=== PATIENT | male | born 1965 | race Caucasian/White ===

== ENCOUNTER 2017-04-02 14:36 | Emergency (ER) | payer BC ==
--- NOTE | 2017-04-02 15:07 | Emergency Department Record ---
History of Present Illness - General Chief Complaint: Back Pain/Injury Stated Complaint: BACK PAIN Time Seen by Provider: 04/02/17 15:01 - History of Present Illness Initial Comments: The patient states he fell off a ladder 4 weeks ago and did not seek medical attention a that time. He had a rhizotomy prior to that the previous August, so has been a patient of Dr[facility]. Today he had xrays ordered by Dr. Collins, and he is here because he needs to know if his back is broken. No doctor saw him, but he also wants to know if he can get his MRI. He states he has not re injured his back. The pain goes into his pelvis and left hip but not down his legs. MD Complaint: Back pain -: Week(s) - Related Data Previous Rx's Medication Instructions Recorded Cyclobenzaprine HCl [Flexeril] 10 mg PO TID #14 tablet 04/02/17 Allergies Allergy/AdvReac Type Severity Reaction Status Date / Time No Known Allergies Allergy Unverified 12/23/16 19:08 Review of Systems Reviewed: No additional complaints except as noted below Constitutional: Reports: As per HPI. Denies: Chills, Fever, Malaise, Night sweats, Weakness, Weight change Eyes: Reports: As per HPI. Denies: Eye discharge, Eye pain, Photophobia, Vision change ENT: Reports: As per HPI. Denies: Congestion, Dental pain, Ear pain, Epistaxis , Hearing loss, Throat pain Respiratory: Reports: As per HPI. Denies: Cough, Dyspnea, Hemoptysis, Stridor, Wheezes Cardiovascular: Reports: As per HPI. Denies: Arrhythmia, Chest pain, Dyspnea on exertion, Edema, Murmurs, Orthopnea, Palpitations, Paroxysmal nocturnal dyspnea, Rheumatic Fever, Syncope Endocrine: Reports: As per HPI. Denies: Fatigue, Heat or cold intolerance, Polydipsia, Polyuria Gastrointestinal: Reports: As per HPI. Denies: Abdominal pain, Constipation, Diarrhea, Hematemesis, Hematochezia, Melena, Nausea, Vomiting Genitourinary: Reports: As per HPI. Denies: Dysuria, Frequency, Hematuria, Incontinence, Retention, Testicular pain, Testicular mass, Urgency Musculoskeletal: Reports: As per HPI. Denies: Arthralgia, Back pain, Gout, Joint swelling, Myalgia, Neck pain Skin: Reports: As per HPI. Denies: Bruising, Change in color, Change in hair/ nails, Lesions, Pruritus, Rash Neurological: Reports: As per HPI. Denies: Abnormal gait, Confusion, Headache, Numbness, Paresthesias, Seizure, Tingling, Tremors, Vertigo, Weakness Psychiatric: Reports: As per HPI. Denies: Anxiety, Auditory hallucinations, Depression, Homicidal thoughts, Suicidal thoughts, Visual hallucinations Hematological/Lymphatic: Reports: As per HPI. Denies: Anemia, Blood Clots, Easy bleeding, Easy bruising, Swollen glands Physical Exam - General General Appearance: Alert, Oriented x3, Cooperative, No acute distress (able to bend over to touch his boots on his feet while sitting on the cart.) - Head Head exam: Normal inspection - Eye Eye exam: Normal appearance, PERRL Pupils: Normal accommodation, Miosis (bilateral pinpoint pupils) - ENT ENT exam: Normal exam, Mucous membranes moist, Normal external ear exam, Normal orophraynx, TM's normal bilaterally Ear exam: Normal external inspection. negative: External canal tenderness Nasal Exam: Normal inspection. negative: Discharge, Sinus tenderness Mouth exam: Normal external inspection, Tongue normal Teeth exam: Normal inspection. negative: Dental caries Throat exam: Normal inspection. negative: Tonsillar erythema, Tonsillar exudate - Neck Neck exam: Normal inspection, Full ROM. negative: Tenderness - Respiratory Respiratory exam: Normal lung sounds bilaterally. negative: Respiratory distress - Cardiovascular Cardiovascular Exam: Regular rate, Normal rhythm, Normal heart sounds - GI/Abdominal GI/Abdominal exam: Soft, Normal bowel sounds. negative: Tenderness - Rectal Rectal exam: Deferred - exam: Deferred - Extremities Extremities exam: Normal inspection, Full ROM, Normal capillary refill. negative: Tenderness - Back Back exam: Reports: Normal inspection, Full ROM, Other (minimal soreness to lower lumbar and sacral regions diffusely.). Denies: CVA tenderness (R), CVA tenderness (L), Muscle spasm, Rash noted, Tenderness - Neurological Neurological exam: Alert, CN II-XII intact, Normal gait, Oriented X3, Reflexes normal (2 plus and equal bilaterally). negative: Motor sensory deficit - Psychiatric Psychiatric exam: Normal affect, Normal mood - Skin Skin exam: Dry, Intact, Normal color, Warm Medical Decision Making - Management Options MDM Management: No Additional Work-up Planned (Follow up with your Back Specialist as previously arranged.) - Data Complexity MDM Data: X-Ray Ordered and/or Reviewed Disposition Disposition: Discharge Clinical Impression: Chronic low back pain Qualifiers: Back pain laterality: bilateral Sciatica presence: without sciatica Qualified Code(s): M54.5 - Low back pain; G89.29 - Other chronic pain; G89.29 - Other chronic pain Disposition: Home, Self-Care Condition: (1) Good Instructions: Low Back Strain (ED) Additional Instructions: Follow up with Dr. Collins as previously arranged. Flexeril as directed if needed for pain. No lifting bending twisting. Prescriptions: Cyclobenzaprine HCl [Flexeril] 10 mg PO TID #14 tablet Quality - Quality Measures Quality Measures: N/A - Blood Pressure Screening Does Patient Have Any of the Following: No Systolic Measurement: ~ Screening for High Blood Pressure: < Normal BP, F/U Not Required > [G8786]
[2017-04-02] MEDS ORDERED: KETOROLAC 30 MG/ML VIAL IM ONE (15:23)
[2017-04-02] MEDS ORDERED: ORPHENADRINE CITRATE 60MG/2ML VIAL IM ONE (15:23)
== END 2017-04-02 15:53 | disposition home or self-care (01) ==
LOC: ER 14:36
DX: G89.21 Chronic pain due to trauma (principal); M54.5 Low back pain; M25.552 Pain in left hip; W11.XXXA Fall on and from ladder, initial encounter
CPT/HCPCS: 96372; 99283; 99284; J1885; J2360

== ENCOUNTER 2018-06-28 19:47 | Observation (INO) | payer BC ==
--- NOTE | 2018-06-28 19:59 | Emergency Department Record ---
History of Present Illness - General Chief Complaint: Chest Pain Stated Complaint: CHEST PRESSURE/ACHE Time Seen by Provider: 06/28/18 19:48 Source: Patient Mode of Arrival: Ambulatory Limitations: No limitations - History of Present Illness Initial Comments: 52 yo male presents to ED for evaluation of an "ache" to the left chest, reports symptoms are intermittent for the past several days. Patient denies fevers, chills, or pain with deep inspiration. Patient reports a history of smoking and HTN, denies previous heart problems. Patient denies history of DVT , calf swelling or pain. Patient is worried that he may have "cancer of the toe , or just neuropathy", also was recently seen for blood in the stool by his PCP. MD Complaint: Chest pain Onset/Timin -: Days(s) Onset: Other Pain Location: Left chest Pain Radiation: None Severity: Moderate Quality: Aching Consistency: Intermittent Improves With: Nothing Worsens With: Nothing - Related Data Home Medications Medication Instructions Recorded Confirmed Last Taken Atenolol/Chlorthalidone 1 each PO DAILY 06/28/18 06/28/18 Unknown [Atenolol-Chlorthalidone 100-25] Allergies Allergy/AdvReac Type Severity Reaction Status Date / Time No Known Drug Allergies Allergy Verified 06/28/18 19:49 Review of Systems Constitutional: Denies: Chills, Fever, Malaise, Night sweats Eyes: Denies: Eye discharge, Eye pain ENT: Denies: Congestion, Ear pain, Epistaxis Respiratory: Denies: Cough, Dyspnea Cardiovascular: Reports: Chest pain. Denies: Dyspnea on exertion Endocrine: Denies: Fatigue, Heat or cold intolerance Gastrointestinal: Denies: Abdominal pain, Nausea, Vomiting Genitourinary: Denies: Incontinence, Retention Musculoskeletal: Denies: Arthralgia, Back pain, Gout, Joint swelling Skin: Denies: Bruising, Change in color Neurological: Denies: Abnormal gait, Confusion, Headache, Seizure Psychiatric: Reports: Anxiety Hematological/Lymphatic: Denies: Anemia, Blood Clots Past Medical History - SOCIAL HISTORY Smoking Status: Current every day smoker Drug Use: Heavy Drug Use Detail:: Marijuana - RESPIRATORY Hx Respiratory Disorders: No - CARDIOVASCULAR Hx Hypertension: Yes - NEURO Hx Neuropathy: Yes - GI Hx GI Disorders: No - Hx Genitourinary Disorders: No - ENDOCRINE Hx Endocrine Disorders: No - MUSCULOSKELETAL Hx Back Injury: Yes - PSYCH Hx Psych Problems: No - HEMATOLOGY/ONCOLOGY Hx Hematology/Oncology Disorders: No Physical Exam - General General Appearance: Alert, Oriented x3, Cooperative, Anxious Limitations: No limitations - Head Head exam: Atraumatic, Normocephalic, Normal inspection Head exam detail: negative: Abrasion, Contusion, Singletary's sign, General tenderness, Hematoma, Laceration - Eye Eye exam: Normal appearance. negative: Conjunctival injection, Periorbital swelling, Periorbital tenderness, Scleral icterus - ENT Ear exam: negative: Auricular hematoma, Auricular trauma Nasal Exam: negative: Active bleeding, Discharge, Dried blood, Foreign body Mouth exam: negative: Drooling, Laceration, Muffled voice, Tongue elevation - Neck Neck exam: Normal inspection. negative: Meningismus, Tenderness - Respiratory Respiratory exam: Normal lung sounds bilaterally. negative: Rales, Respiratory distress, Rhonchi, Stridor - Cardiovascular Cardiovascular Exam: Regular rate, Normal rhythm, Normal heart sounds - GI/Abdominal GI/Abdominal exam: Soft. negative: Rebound, Rigid, Tenderness - Rectal Rectal exam: Deferred - exam: Deferred - Extremities Extremities exam: Other (Clubbing of the digits). negative: Calf tenderness, Pedal edema, Tenderness - Back Back exam: Denies: CVA tenderness (R), CVA tenderness (L) - Neurological Neurological exam: Alert, Normal gait, Oriented X3 - Psychiatric Psychiatric exam: Anxious - Skin Skin exam: Normal color. negative: Abrasion Type of lesion: negative: abrasion Course - Reevaluation(s) Reevaluation #1: 06/28/18 19:59 EKG: NSR 72 Normal axis, normal intervals No acute ST-T wave changes Reevaluation #2: 06/28/18 20:39 Laboratory studies were reviewed and are grossly unremarkable for an acute process. CXR: No acute process Patient was updated on all results, HEART Protocol was reviewed, patient scores 4. Will admit for further cardiac evaluation. Reevaluation #3: 06/28/18 20:48 Case was discussed with Jenise Stock NP, will accept admission at this time. Medical Decision Making - Lab Data Result diagrams: 06/28/18 20:07 06/28/18 20:07 Disposition Disposition: Admit Clinical Impression: Anxiety Chest pain Qualifiers: Chest pain type: unspecified Qualified Code(s): R07.9 - Chest pain, unspecified Disposition: Still a Patient at [facility] Decision to Admit: Admit from ER Decision to Admit Date: 06/28/18 Decision to Admit Time: 20:41 Condition: (2) Stable Forms: Patient Portal Access Time of Disposition: 20:41 Quality - Quality Measures Quality Measures: N/A - Blood Pressure Screening Does Patient Have Any of the Following: Active Dx of HTN Blood Pressure Classification: Hypertensive Reading Systolic Measurement: 143 Diastolic Measurement: 93 Screening for High Blood Pressure: Patient Exclusion, Hx of HTN [[id number]]
[2018-06-28] MEDS ORDERED: ASPIRIN 81 MG CHEWABLE TABLET PO ONE (20:05)
[2018-06-28 20:18] LABS: BASO % 0.3 % (0-6); EOS % 1.5 % (0-6); GRAN % 63.6 % (47-80); HEMATOCRIT 43.4 % (42.0-52.0); HEMOGLOBIN 14.5 gm/dl (14.0-18.0); MEAN CELL VOLUME 90.8 fl (81-97); MEAN CORPUSCULAR HEMOGLOBIN 30.3 pg (27-33); MEAN CORPUSCULAR HGB CONC 33.4 g/dl (32-36); MEAN PLATELET VOLUME 9.6 fl (7.4-10.4); MONO % 8.6 % (0-9); PLATELET COUNT 227 K/uL (130-400); RED BLOOD COUNT 4.78 M/uL (4.40-5.70); RED CELL DISTRIBUTION WIDTH 13.7 % (11.5-14.5); WHITE BLOOD COUNT W/O DIFF 9.1 K/uL (4.2-12.2)
[2018-06-28 20:28] LABS: BLOOD UREA NITROGEN 24 mg/dL (6-20); CREATININE 0.9 mg/dL (0.7-1.2); EST GLOMERULAR FILTRATION RATE > 60 mL/min; TOTAL PROTEIN 6.7 g/dL (6.6-8.7)
[2018-06-28 20:30] LABS: GLUCOSE,RANDOM 108 mg/dL (74-109)
[2018-06-28 20:33] LABS: ALB/GLOB RATIO 1.9 (1.1-1.8); ALBUMIN 4.4 g/dL (4.0-5.0); ALKALINE PHOSPHATASE 69 U/L (40-129); ALT/SGPT 17 U/L (<41); AST/SGOT 20 U/L (10.0-50.0)
[2018-06-28] MEDS ORDERED: 0.9 % SODIUM CHLORIDE 1000ML 1,000 ML IV PRN (22:00)
[2018-06-28] MEDS ORDERED: NITROGLYCERIN 0.4MG SL TABLET #25 BTL SL PRN (22:00)
[2018-06-29] MEDS ORDERED: ATENOLOL 50 MG TABLET PO SCH (10:00)
[2018-06-29] MEDS ORDERED: ASPIRIN 325 MG TAB ENTERIC-COATED PO SCH (10:00)
[2018-06-29] MEDS ORDERED: CHLORTHALIDONE 25 MG TABLET PO SCH (10:00)
--- NOTE | 2018-06-29 11:54 | History & Physical ---
History of Present Illness - Date of Service Date of Service for History & Physical: 06/29/18 - History of Present Illness Admitting Diagnosis: Chest pain. HTN History of Present Illness: 52 year old male patient presented to ED for evaluation of left-sided chest "aching" that began 3 days [employer]PECTING [employer]. Patient denied any radiation of pain, any shortness of breath, fever, chills, or pain with inspiration. Patient's only significant medical history is HTN, for which he reports not taking his medications regularly, and current, lifelong smoker. PCP: Sheyla Culp ED Course: Troponin negative EKG: NSR 72, normal axis, normal intervals, no acute ST-T wave changes CXR: no acute process 06/29/18: Patient A&O x 4, very anxious and pacing in room. Patient reports continued chest "aching" 05/15. Denies any change in symptoms. Patient declining treatment for anxiety or nicotine withdraw at this time. Troponins negative x 2. hall monitor has not shown any abnormalities, cardiology consult pending. Travel Screening - Travel/Exposure Within Last 30 Days Have you traveled within the last 30 days?: No - Travel/Exposure Within Last Year Have you traveled outside the [place] in the last year?: No - Additonal Travel Details Have you been exposed to anyone with a communicable illness?: No - Travel Symptoms Symptom Screening: None Review of Systems Reviewed: No additional complaints except as noted below Constitutional: Denies: Chills, Fever, Malaise, Night sweats Eyes: Denies: Eye discharge, Eye pain ENT: Denies: Congestion, Ear pain, Epistaxis Respiratory: Denies: Cough, Dyspnea Cardiovascular: Reports: Chest pain. Denies: Dyspnea on exertion Endocrine: Denies: Fatigue, Heat or cold intolerance Gastrointestinal: Denies: Abdominal pain, Nausea, Vomiting Genitourinary: Denies: Incontinence, Retention Musculoskeletal: Denies: Arthralgia, Back pain, Gout, Joint swelling Skin: Denies: Bruising, Change in color Neurological: Denies: Abnormal gait, Confusion, Headache, Seizure Psychiatric: Reports: Anxiety Hematological/Lymphatic: Denies: Anemia, Blood Clots Past Medical History - SOCIAL HISTORY Smoking Status: Current every day smoker Drug Use Detail:: Marijuana - RESPIRATORY Hx Respiratory Disorders: No - CARDIOVASCULAR Hx Cardio Disorders: Yes Hx Hypertension: Yes - NEURO Hx Neuro Disorders: Yes Hx Neuropathy: Yes - GI Hx GI Disorders: No Comment:: recently seen by PCP for blood in stool - Hx Genitourinary Disorders: No - ENDOCRINE Hx Endocrine Disorders: No - MUSCULOSKELETAL Hx Musculoskeletal Disorders: Yes Hx Back Injury: Yes - PSYCH Hx Psych Problems: No - HEMATOLOGY/ONCOLOGY Hx Hematology/Oncology Disorders: No Family Medical History Any Significant Family History?: Yes Family Hx Comment (NOT TO BE USED IN PLACE OF ITEMS BELOW): Dad w/neuropathy Hx Diabetes: Mother Hx Heart Disease: Father, Mother Hx Kidney Disease: Mother H&P Meds/Allergies - Allergies Allergies: Allergies Allergy/AdvReac Type Severity Reaction Status Date / Time No Known Drug Allergies Allergy Verified 06/28/18 19:49 - Home Medications Home Medications Medication Instructions Recorded Confirmed Last Taken Atenolol/Chlorthalidone 1 each PO DAILY 06/28/18 06/28/18 Unknown [Atenolol-Chlorthalidone 100-25] - Active Medications Active Medications: Current Medications Aspirin (Ecotrin (Ec)) 325 mg PO DAILY [facility] Last Admin: 06/29/18 10:46 Dose: 325 mg Atenolol (Tenormin) 100 mg PO DAILY [facility] Last Admin: 06/29/18 10:46 Dose: 100 mg Chlorthalidone (Chlorthalidone) 25 mg PO DAILY [facility] Last Admin: 06/29/18 10:46 Dose: 25 mg Sodium Chloride () 1,000 mls @ 42 mls/hr IV .[id number] PRN PRN Reason: LARGE VOLUME IV Nitroglycerin (Nitrostat 0.4mg) 0.4 mg SL Q5MIN PRN PRN Reason: CHEST PAIN Physical Exam - Vital Signs Vital Signs: Vital Signs - Last 24 Hrs Temp Pulse Pulse Resp BP BP Pulse Ox 06/29/18 08:00 97.6 F 65 18 161/109 96 06/29/18 04:00 97.8 F 60 18 158/104 98 06/28/18 23:54 97.7 F 48 L 20 106/76 97 06/28/18 21:25 98.8 F 60 18 128/85 98 06/28/18 21:17 59 L 16 131/95 99 06/28/18 19:51 98.5 F 68 16 143/93 98 - General General Appearance: Alert, Oriented x3, Cooperative, Anxious Limitations: No limitations - Head Head exam: Atraumatic, Normocephalic, Normal inspection Head exam detail: negative: Abrasion, Contusion, Singletary's sign, General tenderness, Hematoma, Laceration - Eye Eye exam: Normal appearance. negative: Conjunctival injection, Periorbital swelling, Periorbital tenderness, Scleral icterus - ENT Ear exam: negative: Auricular hematoma, Auricular trauma Nasal Exam: negative: Active bleeding, Discharge, Dried blood, Foreign body Mouth exam: negative: Drooling, Laceration, Muffled voice, Tongue elevation - Neck Neck exam: Normal inspection. negative: Meningismus, Tenderness - Respiratory Respiratory exam: Normal lung sounds bilaterally. negative: Rales, Respiratory distress, Rhonchi, Stridor - Cardiovascular Cardiovascular Exam: Regular rate, Normal rhythm, Normal heart sounds Peripheral Pulses: 2+: Radial (R), Radial (L), Dorsalis Pedis (R), Dorsalis Pedis (L) - GI/Abdominal GI/Abdominal exam: Soft. negative: Rebound, Rigid, Tenderness - Rectal Rectal exam: Deferred - exam: Deferred - Extremities Extremities exam: Other (Clubbing of the digits). negative: Calf tenderness, Pedal edema, Tenderness - Back Back exam: Denies: CVA tenderness (R), CVA tenderness (L) - Neurological Neurological exam: Alert, Normal gait, Oriented X3 - Psychiatric Psychiatric exam: Anxious - Skin Skin exam: Normal color. negative: Abrasion Type of lesion: negative: abrasion Results - Labs Result Diagrams: 06/28/18 20:07 06/28/18 20:07 Labs Last 24 Hours: Laboratory Results - last 24 hr 06/28/18 06/28/18 06/29/18 20:07 20:07 03:50 WBC 9.1 RBC 4.78 Hgb 14.5 Hct 43.4 MCV 90.8 MCH 30.3 MCHC 33.4 RDW 13.7 Plt Count 227 MPV 9.6 Gran % 63.6 Lymphocytes % 26.0 Monocytes % 8.6 Eosinophils % 1.5 Basophils % 0.3 Sodium 141 Potassium 3.6 Chloride 97 L Carbon Dioxide 32.0 H Anion Gap 12.0 BUN 24 H Creatinine 0.9 Estimated GFR > 60 Random Glucose 108 Calcium 9.1 Total Bilirubin 0.30 AST 20 ALT 17 Alkaline Phosphatase 69 Troponin T < 0.010 < 0.010 Total Protein 6.7 Albumin 4.4 Globulin 2.3 Albumin/Globulin Ratio 1.9 H VTE H&P Assessment - Risk for VTE Risk for VTE: No Risk Level: Low Risk Assessment Date: 06/29/18 Risk Assessment Time: 11:53 VTE Orders Placed or Will Be Placed: No VTE Reason for No Prophylaxis: Not Indicated Plan - Detailed Diagnosis and Plan (1) Chest pain Current Visit: Yes Status: Acute Qualifiers: Chest pain type: unspecified Qualified Code(s): R07.9 - Chest pain, unspecified Base Code: R07.9 - CHEST PAIN, UNSPECIFIED Comment: 06/29/18: -CP x 3 days -Troponins negative x 2 -VS WNL -hall monitor -EKG and CXR unremarkable in ED -Cardiology consult pending (2) Anxiety Current Visit: Yes Status: Acute Base Code: F41.9 - ANXIETY DISORDER, UNSPECIFIED Comment: 06/29/18: -Patient pacing, yelling, admits to high anxiety -Discussed stress-relieving techniques, patient refuses at this time -Patient offered anti-anxiety medications, declined at this time (3) Current smoker Current Visit: Yes Status: Acute Base Code: F17.200 - NICOTINE DEPENDENCE, UNSPECIFIED, UNCOMPLICATED Comment: 06/29/18: -Current ppd>30 years smoker -Offered nicotine replacement, patient refused -Counselled on smoking cessation, patient declined services (4) DVT prophylaxis Current Visit: Yes Status: Acute Base Code: [id number] - Comment: 06/29/18: -Patient low risk at this time -Encouraged frequent ambulation in room (5) Full code status Current Visit: Yes Status: Acute Base Code: Z78.9 - OTHER SPECIFIED HEALTH STATUS Comment: 06/29/18: -Patient full code this admission
--- NOTE | 2018-06-29 14:59 | Discharge Summary ---
Providers Discharge Summary Date: 06/29/18 Date of admission: 06/28/18 21:11 Expected Date of Discharge: 06/29/18 Attending physician: ADAM SHEIKH Primary care physician: SHEYLA VENTURA D.O. Consults: Consult Orders 06/29/18 06:43 Consult - Cardiology NOW Consulting Provider: QUIQUE MERIDA Physician Instructions: Reason For Exam: chest pain Does pt have current calculator operator?: Not Established Physical Exam - Vital Signs Vital Signs: Vital Signs - Last 24 Hrs Temp Pulse Pulse Resp BP BP Pulse Ox 06/29/18 08:00 97.6 F 65 18 161/109 96 06/29/18 04:00 97.8 F 60 18 158/104 98 06/28/18 23:54 97.7 F 48 L 20 106/76 97 06/28/18 21:25 98.8 F 60 18 128/85 98 06/28/18 21:17 59 L 16 131/95 99 06/28/18 19:51 98.5 F 68 16 143/93 98 - General General Appearance: Alert, Oriented x3, Cooperative, Anxious Limitations: No limitations - Head Head exam: Atraumatic, Normocephalic, Normal inspection Head exam detail: negative: Abrasion, Contusion, Singletary's sign, General tenderness, Hematoma, Laceration - Eye Eye exam: Normal appearance. negative: Conjunctival injection, Periorbital swelling, Periorbital tenderness, Scleral icterus - ENT Ear exam: negative: Auricular hematoma, Auricular trauma Nasal Exam: negative: Active bleeding, Discharge, Dried blood, Foreign body Mouth exam: negative: Drooling, Laceration, Muffled voice, Tongue elevation - Neck Neck exam: Normal inspection. negative: Meningismus, Tenderness - Respiratory Respiratory exam: Normal lung sounds bilaterally. negative: Rales, Respiratory distress, Rhonchi, Stridor - Cardiovascular Cardiovascular Exam: Regular rate, Normal rhythm, Normal heart sounds Peripheral Pulses: 2+: Radial (R), Radial (L), Dorsalis Pedis (R), Dorsalis Pedis (L) - GI/Abdominal GI/Abdominal exam: Soft. negative: Rebound, Rigid, Tenderness - Rectal Rectal exam: Deferred - exam: Deferred - Extremities Extremities exam: Other (Clubbing of the digits). negative: Calf tenderness, Pedal edema, Tenderness - Back Back exam: Denies: CVA tenderness (R), CVA tenderness (L) - Neurological Neurological exam: Alert, Normal gait, Oriented X3 - Psychiatric Psychiatric exam: Anxious - Skin Skin exam: Normal color. negative: Abrasion Type of lesion: negative: abrasion Hospitalization - Hospitalization Admission Diagnosis: Chest pain. HTN - Problem List/Discharge Diagnosis (1) Chest pain Current Visit: Yes Status: Acute Discharge Diagnosis: Chest pain type: unspecified Qualified Code(s): R07.9 - Chest pain, unspecified Base Code: R07.9 - CHEST PAIN, UNSPECIFIED Comment: 06/29/18: -CP x 3 days -Troponins negative x 3 -VS WNL -equipment monitor phototypesetting -EKG and CXR unremarkable in ED -Cardiology consult with Dr. Merida, patient to follow-up with cardiology outpatient (2) Anxiety Current Visit: Yes Status: Acute Base Code: F41.9 - ANXIETY DISORDER, UNSPECIFIED Comment: 06/29/18: -Patient pacing, yelling, admits to high anxiety -Discussed stress-relieving techniques, patient refuses at this time -Patient offered anti-anxiety medications, declined at this time (3) Current smoker Current Visit: Yes Status: Acute Base Code: F17.200 - NICOTINE DEPENDENCE, UNSPECIFIED, UNCOMPLICATED Comment: 06/29/18: -Current ppd>30 years smoker -Offered nicotine replacement, patient refused -Counselled on smoking cessation, patient declined services (4) DVT prophylaxis Current Visit: Yes Status: Acute Base Code: [id number] - Comment: 06/29/18: -Patient low risk at this time -Encouraged frequent ambulation in room (5) Full code status Current Visit: Yes Status: Acute Base Code: Z78.9 - OTHER SPECIFIED HEALTH STATUS Comment: 06/29/18: -Patient full code this admission - Hospitalization Course Disposition: Home, Self-Care Hospital Course: 52 year old male patient presented to ED for evaluation of left-sided chest "aching" that began 3 days JOINER. Patient denied any radiation of pain, any shortness of breath, fever, chills, or pain with inspiration. Patient's only significant medical history is HTN, for which he reports not taking his medications regularly, and current, lifelong smoker. PCP: Sheyla Ventura ED Course: Troponin negative EKG: NSR 72, normal axis, normal intervals, no acute ST-T wave changes CXR: no acute process 06/29/18: Patient A&O x 4, very anxious and pacing in room. Patient reports continued chest "aching" 05/15. Denies any change in symptoms. Patient declining treatment for anxiety or nicotine withdraw at this time. Troponins negative x 2. equipment monitor phototypesetting has not shown any abnormalities, cardiology consult pending. UPDATE: Patient has had troponins negative x 3. No acute findings noted on monitoring manager. Patient seen by Dr. Merida, patient to follow-up with him outpatient in 3-4 weeks, Procedures: Imaging and X-Rays 06/28/18 20:05 CHEST 2 VIEWS [RAD] Stat Cardiology Procedures 06/28/18 19:50 EKG NOW 06/28/18 22:00 Medical Office Receptionist Assistant .Continuous 06/29/18 08:00 EKG ONCE 06/29/18 12:42 Stress EKG/STD Treadmill NOW Abnormal Labs: Abnormal Lab Results 06/28/18 Range/Units 20:07 Chloride 97 L (98-107) mmol/L Carbon Dioxide 32.0 H (22-29) mmol/L BUN 24 H (6-20) mg/dL Albumin/Globulin Ratio 1.9 H (1.1-1.8) Condition at Discharge: (2) Stable Discharge Medications - Discharge Medications Home Medications: Ambulatory Orders Atenolol/Chlorthalidone [Atenolol-Chlorthalidone 100-25] 1 each PO DAILY [Last Taken Unknown] Discharge Plan - Discharge Instructions Activity at Discharge: Increase Activity as Tolerated Diet at Discharge: Low Salt Diet Additional Instructions: -Follow-up with Dr. Merida outpatient in 3-4 weeks -Return to ED if chest pain worsens or any new symptoms develop Quality Measures - Quality Measures Quality Measures: Documentation of Current Medications in Medical Record, Screening for High Blood Pressure and F/U Documented - Current Medications Quality Measure: Measure #130: Documentation of Current Medications Documentation of Current Medications: <Current Medications Documented/Reviewed> [[id number]] - Blood Pressure Screening Quality Measure: Screening for High Blood Pressure and Follow-Up Documented Does Patient Have Any of the Following: Active Dx of HTN Blood Pressure Classification: Hypertensive Reading Systolic Measurement: 143 Diastolic Measurement: 93 Screening for High Blood Pressure: Patient Exclusion, Hx of HTN [G9744] - Elder Abuse Suspicion Index EASI Reference Information: Jeronimo YUN, Sharan Bailon, Renato Bland, Cee Castro.Development and validation of a tool to assist physicians identification of elder abuse: The Elder Abuse Suspicion Index (EASI ). Journal of Elder Abuse and Neglect, 2008; 20 (3): 276-300.
--- NOTE | 2018-06-29 19:39 | Cardiology Consult ---
DATE: 06/29/2018 CONSULTING PHYSICIAN: QUIQUE MADRIGAL M.D. REASON FOR CONSULTATION: MR. Castro is a 52-year-old, who was referred for left -sided chest pressure. HISTORY: Mr. Castro is 52, who presented to [facility] on with complaints of left-sided chest discomfort. He states this has been ongoing for the past three days and has been persistent without radiation. He reported having one episode of blood in his stool. He also complains of toe pain on the right foot. He has no previous history of coronary artery disease, diabetes mellitus, or hyperlipidemia. He states he has history of primary hypertension and has been given Atenolol/Chlorthalidone as treatment. He reports not taking his anti-hypertensive medication for the last several months. He reports being very physically active. He denies palpitations, TIA, syncope, or heart failure symptoms. PAST MEDICAL HISTORY INCLUDES: Primary hypertension. PAST SURGICAL HISTORY: He has had a rhizotomy. MEDICATIONS AT HOME INCLUDE: Atenolol/Chlorthalidone 100/25 mg daily. ALLERGIES: NONE. SOCIAL HISTORY: He smokes one pack per day since the age of 15. No significant alcohol use. Occasional marijuana use. FAMILY HISTORY: Mother had coronary artery disease in her early 60's. Father had coronary artery disease in his late 50's. PHYSICAL EXAM: GENERAL: He is afebrile. VITAL SIGNS: Blood pressure is currently 128/85. Pulse is 60. Respiration rate is 18. He is 98% on room air. LUNGS: Clear to auscultation. CARDIAC EXAM: Normal. ABDOMEN: Soft. EXTREMITIES: Reveal no edema. LABORATORY PROFILE INCLUDES: White count of 9.1. Hemoglobin 14.5. Platelets 227, 000. Sodium 141. Potassium 3.6. BUN 24. Creatinine 0.9. AST 20. ALT 17. Troponins negative x2. IMPRESSION/PLAN: Mr. Castro is 52 years old with history of hypertension, tobacco use, and premature family history of coronary artery disease, who presents with left- sided substernal chest pressure. ECG demonstrates sinus rhythm with normal axis and intervals. Cardiac enzymes are negative. Will plan a Treadmill Stress Test. If this is negative, he can be discharged for outpatient follow-up with us in three to four weeks. JOB NUMBER: [id number] [facility] [place] [facility]
--- NOTE | 2018-06-29 19:46 | Stress Test Report ---
DATE OF TEST: 06/29/2018 Mr. Castro is a 52-year-old gentleman undergoing a Treadmill Stress Test for atypical chest pain. His resting heart rate is 49 beats per minute and blood pressure is 143/101. He exercised for 12 minutes per the Donald protocol with a peak heart rate of 105. This equated to 62% of age-predicted maximum heart rate. Peak blood pressure was 210/102, which is a borderline hypertensive response. At rest, his blood pressure was 143/101. ECG demonstrated sinus rhythm with normal axis and intervals. Continuous ECG monitoring demonstrated no evidence for ischemia or arrhythmia. FINAL IMPRESSION: 1. ASYMPTOMATIC STRESS TEST ACHIEVING ONLY 62% OF AGE-PREDICTED MAXIMUM HEART RATE BUT HE EXERCISED FOR 12 MINUTES ON THE TREADMILL WITHOUT SYMPTOMS. 2. BORDERLINE HYPERTENSIVE RESPONSE TO EXERCISE. 3. NO ECG EVIDENCE FOR ISCHEMIA OR ARRHYTHMIA. JOB NUMBER: [id number] MTDD
--- NOTE | 2018-06-30 08:09 | RADIOLOGY REPORT ---
EXAM: CHEST, TWO VIEWS HISTORY: PATIENT HAS CHEST ACHING. TECHNIQUE: Two views of the chest are provided without comparison examinations. FINDINGS: The cardiomediastinal silhouette is within normal limits for size and contour. The josi appear unremarkable. There is no radiographic evidence of a focal infiltrate, pleural effusion, or pneumothorax. IMPRESSION: NO RADIOGRAPHIC EVIDENCE OF AN ACUTE INTRATHORACIC PROCESS. JOB NUMBER: [id number] MTDD
== END 2018-06-29 15:50 | disposition home or self-care (01) ==
LOC: ER 19:47 → MEDSURG 21:11
PROVIDERS: ADMIT Internal Medicine; ATTEND Internal Medicine
DX: R07.9 Chest pain, unspecified (principal); F41.9 Anxiety disorder, unspecified; I10 Essential (primary) hypertension; G62.9 Polyneuropathy, unspecified; F17.210 Nicotine dependence, cigarettes, uncomplicated; F12.90 Cannabis use, unspecified, uncomplicated
CPT/HCPCS: 71046; 80053; 84484; 85025; 93005; 93010; 93017; 99220; 99285